=== PATIENT | female | born 2000 | race African-American/Black ===

== ENCOUNTER 2018-01-08 11:44 | Emergency (ER) | payer OTHER ==
[~2018-01-08] VITALS: Ht 152.4 cm; Wt 54.9 kg
[2018-01-08 12:13] VITALS: BP 119/73
== END 2018-01-08 15:27 | disposition home or self-care (01) ==
LOC: ER 11:44
DX: S61.012A Laceration without foreign body of left thumb without damage to nail, initial encounter (principal); W26.8XXA Contact with other sharp object(s), not elsewhere classified, initial encounter; Y93.89 Activity, other specified; Y92.89 Other specified places as the place of occurrence of the external cause; Y99.8 Other external cause status